=== PATIENT | male | born 1990 ===

== ENCOUNTER 2025-05-08 09:47 | Outpatient (AMB) | payer OTHER, SELFPAY ==
--- NOTE | 2025-05-08 09:55 | A.OFFPC_ITS ---
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 Accompanied by: Self / Same As Patient Allergies No Known Allergies Allergy (Verified 05/08/25 09:56) Tobacco use date assessed: 05/08/25 Dental Screening Dental Screen Date: 05/08/25 Did you have a dental visit in the last 12 months?: No Did you have a dental problem in the last 6 months where you did not have access to dental care?: No Was dental information given to patient?: No HPI HPI Comments History of Present Illness Details History of Present Illness The patient is a 25-year-old male presenting with gastrointestinal discomfort and a need for specialist referral and establish care Esophagitis: - Diagnosed with esophagitis in March a fter emergency department visit. - Reports epigastric discomfort without severe pain. Headaches: - Daily headaches reported, persisting a ll day. - Neurological evaluation suggested but not completed. Sleep Apnea: - Symptoms include snoring and waking up gasping for air. - Home sleep study ordered for further e valuation. Review of Systems - Gastrointestinal: Reports epigastric d iscomfort, denies severe pain. - Neurological: Reports daily headaches, denies resolution with previous treatments. - Respiratory: Reports snoring and wakin g up gasping for air, denies other respiratory symptoms. 10-point ROS reviewed and negative excep t as noted in HPI Past Medical History Health Maintenance - Baseline labs ordered including CBC, C MP, vitamin levels, and cholesterol. - Home sleep study ordered to evaluate f or sleep apnea. Physical Exam General: Well-appearing, in no acute distress. Vital signs: Within normal limits. HEENT: Normocephalic, atraumatic. PERRLA, EOMI. Conjunctiva clear, sclera anicteric. Oropharynx clear, mucous membranes moist. TMs intact bilaterally. Neck: Supple, no lymphadenopathy, no thyromegaly, no JVD or carotid bruits. Cardiovascular: RRR, normal S1/S2, no murmurs, rubs, or gallops. Peripheral pulses 2+ and symmetric. No edema. Respiratory: Lungs clear to auscultation bilaterally, no wheezes, rales, or rhonchi. Normal effort. Abdomen: Soft, non-tender, non-distended. Normoactive bowel sounds. No hepatosplenomegaly, no masses. Patient reports discomfort in the epigastric area, not pain. MSK: Full range of motion, no joint swelling or deformity. Normal gait. Skin: Warm, dry, intact. No rashes, lesions, or pallor. Neuro: Alert and oriented x3. Cranial nerves II-XII intact. Strength 5/5 throughout. Sensation intact. Reflexes 2+ symmetric. Normal coordination and gait. Reports daily headaches. Psych: Appropriate mood and affect. Normal judgment and insight. Plan 1. Esophagitis - Referral to gastroenterology for [facility] er evaluation and management. 2 Headaches - Neurological evaluation considered due to persistent headaches. - home sleep study for further evaluatio n 4. Sleep Apnea - Home sleep study ordered to evaluate f or sleep apnea. 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 We also talked about the importance of a home sleep study to assess for sleep apnea. I advised the patient to return for follow-up after completing the baseline labs and to bring any relevant paperwork for the referral process. Additionally, we discussed the potential need for a neurological evaluation due to persistent headaches. Patient was informed and verbally consented to the use of an ambient scribe for clinic note documentation during this visit. Patient Instructions - Complete the baseline lab tests as paula n as possible. - Schedule and complete the home sleep s tudy. - Return for follow-up with any paperwor k related to the referral. - Monitor for any new or worsening sympt oms and seek emergency care if necessary. [facility] Medical History (Updated 05/08/25 @ 10:27 by Jonathan Carmona MD) Frequent headaches Snoring Family History (Updated 05/08/25 @ 09:56 by Panchito Weston MA) Father No problems noted. Mother No problems noted. Social History (Updated 05/08/25 @ 10:03 by Panchito Weston MA) Housing: Apartment Alcohol intake: current Alcohol intake frequency: does not drink Patient Tobacco Use Status: Never used Tobacco service: No Current occupational status: employed Cognitive needs: No Hearing needs: No Vision needs: No Questionnaire PHQ-9 Over the last 2 weeks, how often have you been bothered by any of the following problems? 1. Little interest or pleasure in doing things: nearly every day 2. Feeling down, depressed, or hopeless: more than half the days 3. Trouble falling or staying asleep, or sleeping too much: nearly every day 4. Feeling tired or having little energy: nearly every day 5. Poor appetite or overeating: nearly every day 6. Feeling bad about yourself - or that you are a failure or have let yourself or your family down: not at all 7. Trouble concentrating on things, such as reading the newspaper or watching television: not at all 8. Moving or speaking so slowly that other people could have noticed. Or the opposite - being so fidgety or restless that you have been moving around a lot more than usual: not at all 9. Thoughts that you would be better off or of hurting yourself in some way: not at all Total score: 14 Depression Screening Interpretation: Positive Depression Screening Done: Yes Source: Developed by Drs. Abimael Ruvalcaba, Jen Oquendo, Jacobo Motta and colleagues, with an educational fady from [employer]. Thrive Questionnaire Date Thrive assessed: 05/08/25 I am a: Patient What is your living situation today?: I have a steady place to live Within the past 12 months, did the food you bought not last and you didn't have the money to get more?: Never true Within the past 12 months, did you worry whether your food would run out before you got money to buy more?: Never true Do you have trouble paying for medicines?: No Do you have trouble getting transportation to medical appointments?: No Do you have trouble paying your heating and electricity bill?: No Do you have trouble taking care of your child, family member or friend?: No Do you have trouble with day-to-day activities such as bathing, preparing meals, shopping, managing finances, etc.?: No Are you currently unemployed and looking for a job?: No Are you interested in more education?: No Please select the resources that you would like help with: None Currently or been in a relationship where the following occur: No concerns reported THRIVE Score: 0 AUDIT C Alcohol Use Questionnaire (AUDIT-C) 1. How often do you have a drink containing alcohol?: Never 3. How often do you have six or more drinks on one occasion?: Never Total Score: 0 MAURO-7 AMB Questionnaire MAURO-7 Date MAURO - 7 assessed: 05/08/25 Feeling nervous, anxious, or on edge: 0 = Not at all Not being able to stop or control worryin = Nearly every day Worrying too much about different things: 3 = Nearly every day Trouble relaxin = Not at all Being so restless that it is hard to sit still: 3 = Nearly every day Becoming easily annoyed or irritable: 3 = Nearly every day Feeling afraid as if something awful might happen: 3 = Nearly every day Total MAURO-7 score (0-4 normal; 5-9 mild; 10-14 moderate; 15-21 severe): 15 Source: Developed by Drs. Abimael Ruvalcaba, Jen Oquendo, Jacobo Motta and colleagues, with an educational fady from [employer]. Physical exam (Primary Care) Vital Signs: Last Vital Signs Temp 97.6 F 05/08/25 10:00 Pulse 79 05/08/25 10:00 Resp 16 05/08/25 10:00 BP 116/66 05/08/25 10:00 Pulse Ox 99 05/08/25 10:00 Oxygen Delivery Method Room Air 05/08/25 10:00 BMI result Body Mass Index 32.4 Tobacco/Smoking Status: Tobacco use Status Tobacco use date assessed 05/08/25 05/08/25 09:59 Patient Tobacco Use Status Never used Tobacco 05/08/25 10:03 PHQ-9: PHQ-9 Score PHQ-9: Total score 14 05/08/25 10:10 Depression Screening Interpretation: Positive Thrive Assessment: Date of Thrive Assessment Date Thrive assessed 05/08/25 05/08/25 09:59 Currently or been in a relationship where the following occur: No concerns reported Coding Level of Care Code New Pt Level 3 (99378) Diagnoses Establishing care with new doctor, encounter for Z76.89 Encounter for screening, unspecified Z13.9 Counseling, unspecified Z71.9 Screening for diabetes mellitus Z13.1 Screening for lipoid disorders Z13.220 Screening for hypertension Z13.6 Screening for depression Z13.31 Screening for HIV (human immunodeficiency virus) Z11.4 Routine screening for STI (sexually transmitted infection) Z11.3 Class 1 obesity E66.811 Adjustment disorder with mixed anxiety and depressed mood F43.23 Snoring R06.83 Frequent headaches R51.9 Assessment & Plan Assessment & Plan (1) Establishing care with new doctor, encounter for: Code(s): Z76.89 - Persons encountering health services in other specified circumstances (2) Encounter for screening, unspecified: Code(s): Z13.9 - Encounter for screening, unspecified (3) Counseling, unspecified: Code(s): Z71.9 - Counseling, unspecified (4) Screening for diabetes mellitus: Code(s): Z13.1 - Encounter for screening for diabetes mellitus (5) Screening for lipoid disorders: Code(s): Z13.220 - Encounter for screening for lipoid disorders (6) Screening for hypertension: Code(s): Z13.6 - Encounter for screening for cardiovascular disorders (7) Screening for depression: Code(s): Z13.31 - Encounter for screening for depression (8) Screening for HIV (human immunodeficiency virus): Code(s): Z11.4 - Encounter for screening for human immunodeficiency virus [HIV] (9) Routine screening for STI (sexually transmitted infection): Code(s): Z11.3 - Encounter for screening for infections with a predominantly sexual mode of transmission (10) Class 1 obesity: Code(s): E66.811 - Obesity, class 1 (11) Adjustment disorder with mixed anxiety and depressed mood: Code(s): F43.23 - Adjustment disorder with mixed anxiety and depressed mood (12) Snoring: Code(s): R06.83 - Snoring Category: Medical (13) Frequent headaches: Code(s): R51.9 - Headache, unspecified Category: Medical Plan Orders: Orders Complete Blood Count Auto Diff Today Z13.9 - Encounter for screening, unspe cified, Z76.89 - Persons encountering health services in other specified circumstances Comprehensive Met. Panel Today Z13.9 - Encounter for screening, unspecified, Z76.89 - Persons encountering health services in other specified circumstances HIV Ab/Ag Today Z13.9 - Encounter for screening, unspecified, Z76.89 - Persons encountering health services in other specified circumstances Vitamin B12 and Folate Today Z13.9 - Encounter for screening, unspecified, Z76.89 - Persons encountering health services in other specified circumstances Chlamydia Species Ab Panel Today Z13.9 - Encounter for screening, unspecified, Z76.89 - Persons encountering health services in other specified circumstances Syphilis Screen Today Z13.9 - Encounter for screening, unspecified, Z76.89 - Persons encountering health services in other specified circumstances RT PSG in-lab sleep study Today R06.83 - Snoring, R51.9 - Headache, unspecified, Z13.9 - Encounter for screening, unspecified, Z76.89 - Persons encountering health services in other specified circumstances Hemoglobin A1c Today Z13.9 - Encounter for screening, unspecified, Z76.89 - Persons encountering health services in other specified circumstances Hepatitis B Surface Antibody Today Z13.9 - Encounter for screening, unspecified, Z76.89 - Persons encountering health services in other specified circumstances Hepatitis B Surface Antigen Today Z13.9 - Encounter for screening, unspecified, Z76.89 - Persons encountering health services in other specified circumstances Hepatitis C Antibody Today Z13.9 - Encounter for screening, unspecified, Z76.89 - Persons encountering health services in other specified circumstances Lipid Panel Today Z13.9 - Encounter for screening, unspecified, Z76.89 - Persons encountering health services in other specified circumstances UA CC w/rflx Micro + Cult Today Z13.9 - Encounter for screening, unspecified, Z76.89 - Persons encountering health services in other specified circumstances Vitamin D 1,25 dihydroxy Today Z13.9 - Encounter for screening, unspecified, Z76.89 - Persons encountering health services in other specified circumstances CT NG by PCR Urine Today Z13.9 - Encounter for screening, unspecified, Z76.89 - Persons encountering health services in other specified circumstances
[2025-05-08 10:00] VITALS: BP 116/66; PULSE 79; RESP 16; TEMP 36.4; O2SAT 99; BMI 32.4
== END 2025-05-08 10:30 | disposition home or self-care (01) ==
LOC: HO.HMCFMS 09:47
PROVIDERS: PCP Student in an Organized Health Care Education/Training Program; Visit Provider Student in an Organized Health Care Education/Training Program
DX: R06.83 Snoring (principal); E66.811 Obesity, class 1; Z68.32 Body mass index [BMI] 32.0-32.9, adult; F43.23 Adjustment disorder with mixed anxiety and depressed mood; R51.9 Headache, unspecified

== ENCOUNTER 2025-05-08 09:47 | Outpatient (REF) | payer SELFPAY ==
[2025-05-08 13:12] LABS: MANUAL DIFF FLAG NO
[2025-05-08 13:20] LABS: Appearance Urine Turbid; Glucose Urine UA Negative (Negative); PH 6.0 (5.0-9.0); Specific Gravity - Urine 1.025 (1.005-1.025)
[2025-05-08 13:31] LABS: Hematocrit 44.1 % (42.0-52.0); Hemoglobin 15.0 g/dl (14.0-18.0); Imm Gran Abs Auto 0.02 X10*3/uL (0.00-0.03); Imm Gran Pct Auto 0.3 % (0.0-0.4); Lymphocytes Absolute Auto 2.2 X10*3/uL (1.2-4.9); Mean Corpuscular HGB Conc 34.0 g/dl (31.0-36.0); Mean Corpuscular Hemoglobin 29.8 pg (27.0-33.0); Mean Corpuscular Volume 87.7 fL (80.0-98.0); NRBC Abs Auto 0.000 X10*3/uL (0.0-0.012); NRBC Pct Auto 0.0 /100WBC (0.0-0.2); Platelet Count 204 X10*3/uL (160-400); Red Blood Count 5.03 X10*6/uL (4.60-5.80); White Blood Count 7.5 X10*3/uL (4.8-10.8)
[2025-05-08 13:38] LABS: Total Hemoglobin (HGBA1C) 3793.6340 umol/L
[2025-05-08 14:26] LABS: Alanine Aminotransferase 54 U/L (0-40); Albumin Level 4.8 g/dL (3.5-5.0); Alkaline Phosphatase 71 U/L (39-117); Anion Gap 13 (12-20); Aspartate Amino Transferase 41 U/L (5-37); Blood Urea Nitrogen 9 mg/dL (9-16); Calcium 9.6 mg/dL (8.4-10.2); Carbon Dioxide 27 mmol/L (22-29); Chloride 105 mmol/L (96-108); Cholesterol 267 mg/dL (<200); Estimated Glomerular Filt Rate > 60; HDL Cholesterol 22 mg/dL (>40); Potassium 4.0 mmol/L (3.3-5.1); Sodium 141 mmol/L (135-145); Total Protein 7.8 g/dL (6.5-8.0); Triglycerides 820 mg/dL (<150)
[2025-05-08 14:38] LABS: Folate 11.6 ng/mL (> or = 4.0); Vitamin B12 299 pg/mL (200-900)
[2025-05-08 15:40] LABS: CT PCR Urine NOT DETECTED (Not Detect.); NG PCR Urine NOT DETECTED (Not Detect.)
[2025-05-11 04:06] LABS: Syphilis Screen Nonreactive (Nonreactive)
[2025-05-11 04:38] LABS: HBS Num1 12.30 mIU/mL (0-7.99); HBsAGNum1 0.37 S/CO (0.00-0.99); HIV Num 1 0.05 S/CO (0.00-0.99); Hepatitis B Surface Antigen Negative (Negative); ~HepC Num1 0.09 S/CO (0.00-0.79); ~Hepatitis B Surface Antibody REACTIVE (Nonreactive); ~Hepatitis C Antibody Nonreactive (Nonreactive)
[2025-05-12 16:43] LABS: VITAMIN D (1,25 OH) D3 56 pg/mL; Vit D (1,25-Dihydroxy) Total 56 pg/mL (18-72); Vitamin D (1,25 OH) D2 <8 pg/mL
[2025-05-13 11:23] LABS: Chlamydia Trachomatis IgA <1:16 titer (<1:16)
== END 2025-05-08 09:48 | disposition home or self-care (01) ==
LOC: HO.HKASLDS 09:47
PROVIDERS: PCP Student in an Organized Health Care Education/Training Program; Visit Provider Student in an Organized Health Care Education/Training Program
DX: Z76.89 Persons encountering health services in other specified circumstances (principal); Z11.4 Encounter for screening for human immunodeficiency virus [HIV]; Z13.1 Encounter for screening for diabetes mellitus; E66.811 Obesity, class 1; Z68.32 Body mass index [BMI] 32.0-32.9, adult; F43.23 Adjustment disorder with mixed anxiety and depressed mood; R06.83 Snoring; R51.9 Headache, unspecified; Z71.3 Dietary counseling and surveillance; Z20.2 Contact with and (suspected) exposure to infections with a predominantly sexual mode of transmission
CPT/HCPCS: 80053; 80061; 81003; 82607; 82652; 82746; 83036; 85025; 86631; 86632; 86706; 86780; 86803; 87340; 87389; 87491; 87591

== ENCOUNTER 2025-05-14 15:29 | Outpatient (AMB) | payer OTHER, SELFPAY ==
[2025-05-14 15:26] VITALS: BP 92/50; PULSE 80; RESP 16; TEMP 36.6; O2SAT 97; BMI 32.7
--- NOTE | 2025-05-14 15:26 | A.OFFPC_ITS ---
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 Accompanied by: Self / Same As Patient Allergies No Known Allergies Allergy (Verified 05/14/25 15:27) Tobacco use date assessed: 05/08/25 Dental Screening Dental Screen Date: 05/08/25 Did you have a dental visit in the last 12 months?: No Did you have a dental problem in the last 6 months where you did not have access to dental care?: No Was dental information given to patient?: No [facility] Medical History (Updated 05/14/25 @ 15:58 by Jonathan Carmona MD) Elevated liver enzymes Hypertriglyceridemia Mild persistent allergic asthma Frequent headaches Snoring Family History Father No problems noted. Mother No problems noted. Social History Housing: Apartment Alcohol intake: current Alcohol intake frequency: does not drink Patient Tobacco Use Status: Never used Tobacco service: No Current occupational status: employed Cognitive needs: No Hearing needs: No Vision needs: No Questionnaire PHQ-9 Over the last 2 weeks, how often have you been bothered by any of the following problems? 1. Little interest or pleasure in doing things: nearly every day 2. Feeling down, depressed, or hopeless: more than half the days 3. Trouble falling or staying asleep, or sleeping too much: nearly every day 4. Feeling tired or having little energy: nearly every day 5. Poor appetite or overeating: nearly every day 6. Feeling bad about yourself - or that you are a failure or have let yourself or your family down: not at all 7. Trouble concentrating on things, such as reading the newspaper or watching television: not at all 8. Moving or speaking so slowly that other people could have noticed. Or the opposite - being so fidgety or restless that you have been moving around a lot more than usual: not at all 9. Thoughts that you would be better off or of hurting yourself in some way: not at all Total score: 14 Depression Screening Interpretation: Positive Depression Screening Done: Yes Source: Developed by Drs. Abimael Ruvalcaba, Jen Oquendo, Jacobo Motta and colleagues, with an educational fady from [employer]. Thrive Questionnaire Date Thrive assessed: 05/11/25 I am a: Patient What is your living situation today?: I have a steady place to live Within the past 12 months, did the food you bought not last and you didn't have the money to get more?: Often true Within the past 12 months, did you worry whether your food would run out before you got money to buy more?: Often true Do you have trouble paying for medicines?: Yes Do you have trouble getting transportation to medical appointments?: No Do you have trouble paying your heating and electricity bill?: Yes Do you have trouble taking care of your child, family member or friend?: Yes Do you have trouble with day-to-day activities such as bathing, preparing meals, shopping, managing finances, etc.?: No Are you currently unemployed and looking for a job?: No Are you interested in more education?: No Please select the resources that you would like help with: Paying for medicine THRIVE Score: 3 AUDIT C Alcohol Use Questionnaire (AUDIT-C) 1. How often do you have a drink containing alcohol?: Monthly or less 2. How many drinks containing alcohol do you have on a typical day when you are drinking?: 1 or 2 3. How often do you have six or more drinks on one occasion?: Never Total Score: 1 MAURO-7 AMB Questionnaire MAURO-7 Date MAURO - 7 assessed: 05/08/25 Feeling nervous, anxious, or on edge: 3 = Nearly every day Not being able to stop or control worryin = Nearly every day Worrying too much about different things: 3 = Nearly every day Trouble relaxin = Nearly every day Being so restless that it is hard to sit still: 3 = Nearly every day Becoming easily annoyed or irritable: 3 = Nearly every day Feeling afraid as if something awful might happen: 3 = Nearly every day Total MAURO-7 score (0-4 normal; 5-9 mild; 10-14 moderate; 15-21 severe): 21 Source: Developed by Drs. Abimael Ruvalcaba, Jen Oquendo, Jacobo Motta and colleagues, with an educational fady from [employer]. Physical exam (Primary Care) Vital Signs: Last Vital Signs Temp 98 F 05/14/25 15:26 Pulse 80 05/14/25 15:26 Resp 16 05/14/25 15:26 BP 92/50 L 05/14/25 15:26 Pulse Ox 97 05/14/25 15:26 Oxygen Delivery Method Room Air 05/14/25 15:26 BMI result Body Mass Index 32.7 Tobacco/Smoking Status: Tobacco use Status Tobacco use date assessed 05/08/25 05/14/25 15:27 Patient Tobacco Use Status Never used Tobacco 05/14/25 15:27 PHQ-9: PHQ-9 Score PHQ-9: Total score 14 05/14/25 15:37 Depression Screening Interpretation: Positive Thrive Assessment: Date of Thrive Assessment Date Thrive assessed 05/11/25 05/14/25 15:27 Coding Level of Care Code Est Pt Level 3 ([id number]) Diagnoses Mild persistent allergic asthma J45.30 Hypertriglyceridemia E78.1 Elevated liver enzymes R74.8 Hyperlipidemia E78.5 Diverticulosis K57.90 Encounter to discuss test results Z71.2 Adjustment disorder with anxiety F43.22 Assessment & Plan Assessment & Plan (1) Mild persistent allergic asthma: Code(s): J45.30 - Mild persistent asthma, uncomplicated Category: Medical (2) Hypertriglyceridemia: Code(s): E78.1 - Pure hyperglyceridemia Category: Medical (3) Elevated liver enzymes: Code(s): R74.8 - Abnormal levels of other serum enzymes Category: Medical (4) Hyperlipidemia: Code(s): E78.5 - Hyperlipidemia, unspecified (5) Diverticulosis: Code(s): K57.90 - Diverticulosis of intestine, part unspecified, without perforation or abscess without bleeding (6) Encounter to discuss test results: Code(s): Z71.2 - Person consulting for explanation of examination or test findings (7) Adjustment disorder with anxiety: Code(s): F43.22 - Adjustment disorder with anxiety Plan Medications: New fluticasone propionate 110 mcg/actuation 1 puff inhalation BID 12 grams 0RF J45.30 - Mild persistent asthma, uncomplicated albuterol sulfate 90 mcg/actuation (Ventolin HFA) 2 puffs inhalation Q6H PRN 8.5 grams 0RF shortness of breath or wheezing J45.30 - Mild persistent asthma, uncomplicated
== END 2025-05-14 16:02 | disposition home or self-care (01) ==
LOC: HO.HMCFMS 15:29
PROVIDERS: PCP Student in an Organized Health Care Education/Training Program; Visit Provider Student in an Organized Health Care Education/Training Program
DX: J45.30 Mild persistent asthma, uncomplicated (principal); E78.1 Pure hyperglyceridemia; R74.8 Abnormal levels of other serum enzymes; E78.5 Hyperlipidemia, unspecified; K57.90 Diverticulosis of intestine, part unspecified, without perforation or abscess without bleeding; Z71.2 Person consulting for explanation of examination or test findings; F43.22 Adjustment disorder with anxiety